=== PATIENT | female | born 1970 | race Caucasian/White ===

== ENCOUNTER → 2016-09-11 | Outpatient (CLI) | payer BC ==
[~2016-09-11] MED LIST: GLIMEPIRIDE2 MG PO; NO MEDICATIONS; PRINIVIL20 M1 PO
--- NOTE | ~2016-09-11 | CT7 ---
[facility] A Service of [facility] RADIOLOGY TEXT RESULTS PATIENT: CORI MONSIVAIS LOCATION: [facility] : 70 UNIT #: [id number] AGE: [address]: Willy Sylvester MD SEX: F ORDER DR: [id number] [facility] [address] [place], [place] [address] [id number] O MR#: [id number] Acc #: [id number] NAME: CORI MONSIVAIS : 1970 SEX: F STUDY DATE/TIME: 09/11/2016 8:48 UNIT: [facility] ROOM: STUDY DESCRIPTION: CT Abdomen Wo Cont Attending Physician: Willy Sylvester M.D. Referring Physician: Willy Sylvester M.D. Ordering Physician: Willy Sylvester M.D. Primary Care Physician: Yara Silva M.D. MEDICAL IMAGING REPORT This report is preliminary unless electronic signature is present EXAM CT of the abdomen without contrast. HISTORY Ms. Monsivais has a history of a laparoscopic gastric band that was placed in 2012. In April 2015, she developed problems with dysphagia and underwent an esophagram at that time that showed a narrowed channel through the laparoscopic gastric band and dilatation of the pouch. Patient subsequently had some of the fluid removed from the band with relief of symptoms. She had several recurrent episodes and had additional fluid removed from the band. Currently, there is no fluid within the band. However, about 6 months ago, she developed recurrent refractory symptoms. She underwent an esophagram today that showed eccentric dilatation of the pouch that appeared much more significant than on the prior study. Phi angle appeared unchanged when compared to the April 20, 2015 exam. It is in normal range of about 42 degrees; however, it is seen at least partially en face, which is a new finding when compared to the patient's immediate postoperative films. She did appear to have progressive dilatation of the pouch that appeared at least partially eccentric, and there was very minimal passage of contrast material into the remainder of the stomach. CT has been ordered for additional clarification. TECHNIQUE Axial CT images were obtained from the dome of the diaphragm through the abdomen. This CT exam was performed with one or more of the following radiation dose reduction techniques: automatic exposure control, adjustment of mA and/or kV according to patient size, and iterative reconstruction. FINDINGS Images through the lung bases are clear. There is significant streak artifact within the upper abdomen, due to the previously administered thin barium; however, the patient is noted to have a very dilated pouch located [facility] A Service of [facility] RADIOLOGY TEXT RESULTS PATIENT: CORI MONSIVAIS LOCATION: [facility] : 70 UNIT #: [id number] AGE: [address]: Willy Sylvester MD SEX: F ORDER DR: anteriorly with only a minimal amount of contrast passing into the distal stomach. The appearance is not classic for band slippage, but the en face appearance of the band as well as the eccentric dilatation of the pouch, certainly raises the possibility of some slippage. Spleen is borderline enlarged at 13.5 cm. Patient does have cholelithiasis. Adrenal glands appear unremarkable, as does the pancreas. Catheter tubing for the band appears continuous. This patient does have multiple staghorn calculi within the left kidney that are new when compared to the prior exam from January 2012, although there is no evidence of hydronephrosis. Patient did have some punctate stones within the inferior pole of the left kidney on the prior exam, but again, on today's study has multiple staghorn calculi. No stones are seen on the right. No free fluid or adenopathy is seen within the abdomen. The remainder of the bowel appears unremarkable. Review of bone windows does not demonstrate any aggressive osseous abnormalities. IMPRESSION 1. On prior study, patient was noted to have an en face appearance to the laparoscopic gastric band with dilatation of the pouch. There was apparent narrowing of the channel through the band. On today's study, the patient does again noted to have an en face appearance to the band although the phi angle remains normal. There has been progressive dilatation of the pouch, when compared to the prior study from 2015, and contrast pools within this pouch with minimal passage into the remainder of the stomach. This may simply reflect severe narrowing through the band with resultant dilatation of the pouch. However, I think there may be a component of slippage, as well, as I think the position of the band is slightly lower than expected, particularly when compared to the immediate post operative images, and also because of the eccentric dilatation of the pouch. 2. Cholelithiasis. 3. Multiple staghorn calculi are identified within the left kidney without any evidence of obstruction. These calculi are new when compared to the prior study from 2011, although the patient did have a few punctate nonobstructing stones at that time. Dictated by... Aziza Montoya M.D. THIS IS AN ELECTRONICALLY VERIFIED REPORT Aziza Montoya M.D. at 09/11/2016 4:47 PM AFF/js TD: 09/11/2016 11:02 [facility] A Service of [facility] RADIOLOGY TEXT RESULTS PATIENT: COR[facility]IS [id number] 70 UNIT #: [id number] AGE: [address]: Willy Sylvester MD SEX: F ORDER DR: ABIDA #: [id number] MEDICAL IMAGING REPORT Page 1 of 1 COPY
--- NOTE | ~2016-09-11 | CR97 ---
[facility] A Service of [facility] & [facility] RADIOLOGY TEXT RESULTS PATIENT: CORI MONSIVAIS LOCATION: [facility] : 70 UNIT #: [id number] AGE: [address]: Willy Sylvester MD SEX: F ORDER DR: [id number] [facility] [address] [place], [place] [address] [id number] O MR#: [id number] Acc #: [id number] NAME: CORI MONSIVAIS : 1970 SEX: F STUDY DATE/TIME: 09/11/2016 8:04 UNIT: [facility] ROOM: STUDY DESCRIPTION: CR Esophagram Attending Physician: Willy Sylvester M.D. Referring Physician: Willy Sylvester M.D. Ordering Physician: Willy Sylvester M.D. Primary Care Physician: Yara Silva M.D. MEDICAL IMAGING REPORT This report is preliminary unless electronic signature is present EXAM Single-contrast barium esophagram HISTORY Ms. Monsivais is a 56-year-old woman who is status post laparoscopic gastric banding procedure in November of 2012. She subsequently developed some complaints of dysphasia in 2015 and had fluid removed from her laparoscopic gastric band. This did improve her symptoms but she has had recurrence of symptoms over the past 6 months. TECHNIQUE Patient was administered thin barium and multiple fluoroscopic images were obtained. 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 Patient was administered some thin barium. Her motility appeared normal. The contrast accumulated within a dilated pouch. The pouch does appear eccentrically dilated and there was very minimal passage of contrast material into the small bowel. Total fluoroscopy time was 1.4 minutes and 14 fluoroscopic images were obtained. IMPRESSION While the phi angle of the patient's laparoscopic band remains normal, I do think that the band projects lower and more en face than on the immediate postoperative films. Furthermore, there is eccentric dilatation of the patient's gastric pouch with very minimal passage of contrast material into the distal stomach. I suspect that some of the appearance may be related to very narrow channels through the laparoscopic gastric STS. [facility] A Service of [facility] RADIOLOGY TEXT RESULTS PATIENT: CORI MONSIVAIS LOCATION: [facility] : 70 UNIT #: [id number] AGE: [address]: Willy Sylvester MD SEX: F ORDER DR: band with progressive dilatation of the gastric pouch; however, again, the en face appearance as well as eccentric dilatation of the pouch I think also raises the possibility of band slippage. We will send the patient to CT for further anatomic assessment. Findings were discussed with Dr. Sylvester following this procedure. Dictated by... Aziza Montoya M.D. THIS IS AN ELECTRONICALLY VERIFIED REPORT Aziza Montoya M.D. at 09/12/2016 6:08 PM AFF/aa TD: 09/12/2016 09:48 JOB #: [id number] MEDICAL IMAGING REPORT Page 1 of 1 COPY
== END | disposition home or self-care (01) ==
LOC: CRAD 07:45
DX: R13.10 Dysphagia, unspecified (principal); K95.09 Other complications of gastric band procedure; K80.20 Calculus of gallbladder without cholecystitis without obstruction; N20.0 Calculus of kidney
CPT/HCPCS: 74150; 74220

== ENCOUNTER → 2016-09-24 | Day surgery (SDC) | payer BC ==
--- NOTE | ~2016-09-24 | OR ---
Unit #: [id number] #: [id number] Patient: CORI VIDAL [id number] [address] [address] [id number] O MR#: [id number] NAME: CORI VIDAL ROOM: Date of Procedure: 09/24/2016 Admission Date: 09/24/2016 Surgeon: Willy Sylvester M.D. : 1970 Attending Physician: Willy Sylvester M.D. Primary Care Physician: Yara Silva M.D. OPERATIVE REPORT PREOPERATIVE DIAGNOSIS Gastric outlet obstruction secondary to laparoscopic adjustable gastric band slip. POSTOPERATIVE DIAGNOSES 1. Gastric outlet obstruction secondary to laparoscopic adjustable gastric band slip. 2. Recurrent paraesophageal hiatal hernia. PROCEDURES PERFORMED 1. Reduction of laparoscopic adjustable gastric band slip with repositioning of lap band. 2. Laparoscopic paraesophageal hiatal hernia repair. ASSISTANT Mandeep Hood M.D. ANESTHESIA General. ESTIMATED BLOOD LOSS Minimal. IV FLUIDS 800 crystalloid. COMPLICATIONS None. INDICATIONS FOR PROCEDURE The patient is a 46-year-old lady, who has done well with band, who presents with a gastric outlet obstruction secondary to a band slip. DESCRIPTION OF PROCEDURE The patient was taken to the operating theater and placed in a supine position. General anesthesia was induced. The abdomen was prepped and draped. A 10-mm Visiport was then placed in midline without difficulty. The abdomen was insufflated to 15 mmHg CO2. The patient was placed in reverse Trendelenburg. We placed left upper quadrant 10 mm, left lower quadrant 5 mm, right upper quadrant 5 mm, and a Sharon liver retractor. I identified a very large slip, otherwise saw no ischemia. We began by dissecting around the band and adhesions, so I was able to unbuckle the Unit #: [id number] #: [id number] Patient: CORI VIDAL band and then decompressed the proximal stomach. The OG tube was placed to assist in this decompression. I then mobilized the hepatogastric ligament. I identified the right crura. The crura was then from the stomach and esophagus. There was a large anterior paraesophageal hiatal hernia as well as small posterior component. I dissected out the left crura. I then removed the lap band after cutting the lap band tubing. I then repaired the paraesophageal hiatal hernia with 2 interrupted 0 Ethibond sutures one anterior and one posterior. This created a complete repair of the hiatus with reduction of the paraesophageal hiatal hernia. We then repositioned the band from the right crura to the angle of His. This was then buckled anterior creating a 20 mL pouch. I then secured the stomach of the redundant fundus onto the pouch with 2 interrupted 0 Ethibond sutures. A third gathering suture was then used to plicate the stomach between the fixation point of the second Ethibond suture as well as the lesser curve. Hemostasis was adequate. I saw no other abnormalities. The ports were removed and the wound was closed with 4-0 Vicryl. The patient tolerated the procedure well and sent to recovery room in good condition. Dictated by... Vaughn Michael/ananth TD: 09/24/2016 16:09 JOB #: [id number] OPERATIVE REPORT Page 1 of 1 X Willy Sylvester MD X PROCEDURE OPERATIVE NOTE
--- NOTE | ~2016-09-24 | CR7 ---
[facility] A Service of [facility] & [facility] RADIOLOGY TEXT RESULTS PATIENT: CORI VIDAL LOCATION: [facility] : 70 UNIT #: [id number] AGE: [address]: Willy Sylvester MD SEX: F ORDER DR: [id number] [facility] [address] [place] [address]. [place], [place] [address] [id number] O MR#: [id number] Acc #: [id number] NAME: CORI VIDAL : 1970 SEX: F STUDY DATE/TIME: 09/24/2016 12:50 UNIT: [facility] ROOM: STUDY DESCRIPTION: CR Abdomen Single AP View Attending Physician: Willy Sylvester M.D. Ordering Physician: Willy Sylvester M.D. Primary Care Physician: Yara Silva M.D. MEDICAL IMAGING REPORT This report is preliminary unless electronic signature is present EXAM Single-view abdomen HISTORY Postop lap-band revision today. COMPARISON CT abdomen 09/11/2016. FINDINGS A portable view of the abdomen demonstrates revision of the patient's gastric band with the gastric band projecting more cephalad relative to the prior examination and projects at the level of the diaphragm. The band also demonstrates a more vertical orientation with about a 17 degree angle relative to the thoracolumbar spine. Positive contrast noted within the left renal collecting system. Insufflation tubing in expected position. No focal bowel dilatation. Lung bases unremarkable. Dictated by... Autumn Brice M.D. THIS IS AN ELECTRONICALLY VERIFIED REPORT Autumn Brice M.D. at 09/24/2016 5:12 PM SAMIR/aniket TD: 09/24/2016 15:40 JOB #: [id number] MEDICAL IMAGING REPORT Page 1 of 1 COPY
[2016-09-24 09:44] LABS: ALBUMIN SERUM 3.7 g/dL (3.5-5.0); BILIRUBIN,TOTAL 0.2 mg/dL (0.2-2.0); BUN/CREATININE RATIO 12.85; CALCIUM SERUM 8.9 mg/dL (8.4-10.2); CREATININE SERUM 0.7 mg/dL (0.6-1.4); GLOM FILT RATE Estimated 103.9 mL/min (>60); POTASSIUM 3.6 mmol/L (3.5-5.1); PROTEIN TOTAL SERUM 7.1 g/dL (6.0-8.3)
== END | disposition home or self-care (01) ==
LOC: CSUR 08:23
PROVIDERS: Surgery
DX: K95.09 Other complications of gastric band procedure (principal); K44.9 Diaphragmatic hernia without obstruction or gangrene; I10 Essential (primary) hypertension; E11.9 Type 2 diabetes mellitus without complications; E78.5 Hyperlipidemia, unspecified; K21.9 Gastro-esophageal reflux disease without esophagitis; Z87.442 Personal history of urinary calculi; Z87.440 Personal history of urinary (tract) infections; Y83.8 Other surgical procedures as the cause of abnormal reaction of the patient, or of later complication, without mention of misadventure at the time of the procedure
CPT/HCPCS: 74000; 80053; 82947; J0330; J0690; J1100; J1885; J2250; J2405; J2710; J3010